=== PATIENT | female | born 1995 | race Hispanic/Latino ===

== ENCOUNTER 2017-07-26 08:33 | Emergency (ER) | payer MEDICAID, OTHER ==
[2017-07-26] MEDS ORDERED: ACETAMINOPHEN EXTRA STRENGTH 500 MG TABLET ONE (09:21)
[2017-07-26 09:50] LABS: APPEARANCE,URINE Turbid (CLEAR); BILIRUBIN,URINE Negative (NEGATIVE); COLOR,URINE Yellow (YELLOW); GLUCOSE, URINE (UA) Negative (NEGATIVE); KETONES,URINE Negative (NEGATIVE); LEUKOCYTE ESTERASE ,URINE Trace (NEGATIVE); NITRATE,URINE Negative (NEGATIVE); OCCULT BLOOD,URINE Nonhemolyzed Trace (NEGATIVE); PH,URINE 8.5 (5.0-8.0); PROTEIN,URINE Negative (NEGATIVE)
[2017-07-26 10:05] LABS: HCG,QUAL RESULT NEGATIVE (NEGATIVE)
[2017-07-26 10:18] LABS: BACTERIA,URINE Rare /HPF (None Seen)
== END 2017-07-26 11:38 | disposition home or self-care (01) ==
LOC: EDH 08:33
DX: B34.9 Viral infection, unspecified (principal); Z72.0 Tobacco use
CPT/HCPCS: 81001; 81025; 87804